=== PATIENT | female | born 1985 | race African-American/Black ===

== ENCOUNTER 2021-07-28 13:07 | Emergency (ER) | payer OTHER ==
[~2021-07-28] VITALS: Ht 162.6 cm; Wt 72.6 kg
[2021-07-28 13:41] LABS: BASOPHILS % 0.2 % (0.0-1.0); HEMATOCRIT 28.7 % (34.2-44.1); HEMOGLOBIN 8.7 g/dL (12.0-16.0); LYMPHOCYTES # (AUTO) 1.5 (1.0-3.2); LYMPHOCYTES % 30.3 % (18.0-39.1); MEAN CORPUSCULAR HEMOGLOBIN 21.1 pg (28-32); MEAN CORPUSCULAR HGB CONC 30.3 g/dL (31-35); MEAN CORPUSCULAR VOLUME 69.7 fL (81-99); MONOCYTES # (AUTO) 0.5 (0.2-0.8); MONOCYTES % 9.2 % (4.4-11.3); NEUTROPHILS # (AUTO) 3.1 (2.1-6.9); NEUTROPHILS % 59.9 % (38.7-80.0); PLATELET COUNT 278 x10e3/uL (140-360); RED BLOOD COUNT 4.12 x10e6/uL (3.6-5.1); RED CELL DISTRIBUTION WIDTH 19.6 % (11.7-14.4)
[2021-07-28 14:06] LABS: ANION GAP 11.9 mmol/L (8-16); BLOOD UREA NITROGEN 10 mg/dL (7-26); BUN/CREATININE RATIO 14 (6-25); CARBON DIOXIDE 22 mmol/L (22-29); CHLORIDE 107 mmol/L (98-107); CREATININE, SERUM 0.69 mg/dL (0.57-1.11); EST GLOMERULAR FILTRATION RATE 117 ML/MIN (60-); GLUCOSE 103 mg/dL (74-118); POTASSIUM 3.9 mmol/L (3.5-5.1); SODIUM 137 mmol/L (136-145)
[2021-07-28 14:16] LABS: CLARITY,URINE SL CLOUDY (CLEAR); COLOR,URINE YELLOW (YELLOW); KETONES,URINE TRACE (NEGATIVE); LEUKOCYTE ESTERASE ,URINE TRACE (NEGATIVE); NITRITE,URINE POSITIVE (NEGATIVE); PROTEIN,URINE DIPSTICK 2+ (NEGATIVE); URINE UROBILINOGEN 1 mg/dL (0.2 - 1)
[2021-07-28 14:19] LABS: BACTERIA,URINE MANY /HPF; EPITHELIAL CELLS,URINE FEW /LPF
[2021-07-28 14:38] LABS: HCG,QUANTITATIVE 53561.54 mIU/mL (0-10)
[2021-07-28] MEDS ORDERED: KEFLEX125 MG/5 M PO (15:56)
[2021-07-28 15:58] VITALS: BP 115/86
[2021-07-28] MEDS ORDERED: CEPHALEXIN500 MG PO (15:58)
== END 2021-07-28 16:00 | disposition home or self-care (01) ==
LOC: ER 13:21
DX: O20.0 Threatened abortion (principal); O23.41 Unspecified infection of urinary tract in pregnancy, first trimester; N39.0 Urinary tract infection, site not specified; D64.9 Anemia, unspecified; R10.31 Right lower quadrant pain; M54.50 Low back pain, unspecified; Y99.0 Civilian activity done for income or pay
CPT/HCPCS: 36415; 76801; 76817; 80048; 81001; 84702; 85025; 86900; 99284